=== PATIENT | male | born 1945 | race Caucasian/White ===

== ENCOUNTER 2024-04-04 00:08 | Emergency (ER) | payer MEDICARE ==
[~2024-04-04] VITALS: Ht 175.3 cm; Wt 106.0 kg
[2024-04-04 00:12] VITALS: TEMP 98.7; O2SAT 100
[2024-04-04] MEDS ORDERED: HYDROCODONE/ACETAMINOPHEN 5/325MG TABLET PO ONE (00:15)
[2024-04-04] MEDS: HYDROCODONE/ACETAMINOPHEN 5/325MG TABLET PO NR (08:40)
[2024-04-04 11:57] VITALS: BP 130/80; PULSE 77; RESP 16; O2SAT 99
== END 2024-04-04 12:00 | disposition home or self-care (01) ==
LOC: ER 00:08
DX: G89.29 Other chronic pain (principal)
CPT/HCPCS: 73502; 99283